=== PATIENT | male | born 1970 | race Caucasian/White ===

== ENCOUNTER 2017-02-13 09:20 | Emergency (ER) | payer SELFPAY ==
[2017-02-13] MEDS ORDERED: ONDANSETRON HCL/PF 4 MG/ 2ML VIAL ONE (09:51)
[2017-02-13] MEDS ORDERED: KETOROLAC TROMETHAMINE 60 MG/2 ML VIAL ONE (09:51)
[2017-02-13] MEDS ORDERED: KETOROLAC TROMETHAMINE 60 MG/2 ML VIAL IM ONE (09:54)
[2017-02-13] MEDS ORDERED: ONDANSETRON HCL/PF 4 MG/ 2ML VIAL IM ONE (09:54)
[2017-02-13 10:11] LABS: APPEARANCE,URINE CLOUDY (CLEAR); COLOR,URINE YELLOW (YELLOW); OCCULT BLOOD,URINE NEGATIVE (NEGATIVE); PH URINE 5.5 (5.0 - 8.0); UROBILINOGEN URINE 0.2 Eu (0.2-1.0)
[2017-02-13 10:15] LABS: BASOPHILS % 0.5 (0.0-1.5); EOSINOPHILS % 0.9 % (0.0-6.8); LYMPHOCYTES # 1.2 # k/uL (0.6-4.0); MEAN CORPUSCULAR HEMOGLOBIN 28.9 pg (28.0-34.0); MONOCYTES # 0.2 # k/uL (0.0-0.9); MONOCYTES % 3.2 % (0.0-11.0)
[2017-02-13 10:37] LABS: eGFR (African) > 60; eGFR (Non-African) > 60
[2017-02-13] MEDS ORDERED: HYOSCYAMINE SULFATE 0.125 MG TAB.SUBL SL ONE (10:58)
--- NOTE | 2017-02-13 11:49 | ED Physician Documentation ---
Flank Pain - HISTORIAN Historian: patient - HPI Stated Complaint: Left Flank Pain Chief Complaint: Flank Pain Additional Information: started suddenly on left side 2 am Onset: hours (6) Duration: constant Timing: still present Context: denies: out of country travel, bad food, recent trauma Severity: moderate Quality: aching Associated Symptoms: none Exacerbated by: nothing Relieved by: nothing Further Comments: no - ROS CONST: no problems GI/: none CVS/RESP: none EYES/ENT: none MS/SKIN/LYMPH: none NEURO/PSYCH: none - SOCIAL HX Smoking History: non-smoker Alcohol Use: none Drug Use: none - FAMILY HX Family History: none - PAST HX Past History: other (kidney stones, ortho issues) Ischemic Bowel Risk Factors: none Other History: none Surgeries/Procedures: none Immunizations: referred to PCP Medications: none Allergies: NKDA - VITAL SIGNS Vital Signs: Vital Signs Temp Pulse Resp BP Pulse Ox 98 F 88 18 155/118 99 02/13/17 09:20 02/13/17 09:20 02/13/17 09:20 02/13/17 09:20 02/13/17 09:20 - REVIEWED ASSESSMENTS Nursing Assessment Reviewed: Yes Vitals Reviewed: Yes Progress - Results/Orders Results/Orders: cbc, cmp, ua, ct abdomen/pelvis ordered - Progress Progress: pt given toradol 60 mg im and hyoscyamine 0.25 mg p.o. with reduction of pain to 2/10 Critical Care Note - Critical Care Note Total Time (mins): 0 ED Results Lab/Radiology - Lab Results Lab Results: Lab Results 02/13/17 02/13/17 02/13/17 10:05 10:05 09:42 WBC 6.50 K/ul K/ul (4.00-12.00) RBC 5.73 M/ul H M/ul (3.90-5.20) Hgb 16.5 g/dL g/dL (12.0-18.0) Hct 49.1 % % (37.0-53.0) MCV 85.7 fl fl (80.0-100.0) MCH 28.9 pg pg (28.0-34.0) MCHC 33.7 g/dL g/dL (30.0-36.0) RDW 13.7 % % (11.3-14.3) Plt Count 203 K/mm3 K/mm3 (130-400) Neut % (Auto) 76.0 % % (39.0-79.0) Lymph % (Auto) 18.6 % % (16.0-50.0) [place] % (Auto) 3.2 % % (0.0-11.0) Eos % (Auto) 0.9 % % (0.0-6.8) Baso % (Auto) 0.5 (0.0-1.5) Neut # 5.0 # k/uL # k/uL (1.4-7.7) Lymph # 1.2 # k/uL # k/uL (0.6-4.0) [place] # 0.2 # k/uL # k/uL (0.0-0.9) Eos # 0.1 # k/uL # k/uL (0.0-0.6) Baso # 0.0 # k/uL # k/uL (0.0-0.5) Reactive Lymphs % 0.9 % % (0.0-5.0) Reactive Lymphs # 0.1 # k/uL # k/uL (0.0-0.8) Sodium 140 mmol/L mmol/L (136-145) Potassium 4.0 mmol/L mmol/L (3.5-5.0) Chloride 109 mmol/L mmol/L (98-110) Carbon Dioxide 31 mmol/L mmol/L (20-32) BUN 11 mg/dL mg/dL (10-26) Creatinine 1.0 mg/dL mg/dL (0.4-1.5) Estimated Creat Clear 143 Est GFR ( Amer) > 60 (60 - ) Est GFR (Non-Af Amer) > 60 (60 - ) Glucose 118 mg/dL H mg/dL (70-99) Calcium 9.7 mg/dL mg/dL (8.5-10.5) Total Bilirubin 0.8 mg/dL mg/dL (0.2-1.2) AST 30 U/L U/L (0-41) ALT 33 U/L U/L (0-45) Alkaline Phosphatase 73 U/L U/L (46-116) Total Protein 7.9 g/dL g/dL (6.0-8.5) Albumin 4.9 g/dL g/dL (3.0-5.5) Urine Color Yellow (YELLOW) Urine Appearance Cloudy (CLEAR) Urine pH 5.5 (5.0 - 8.0) Ur Specific [place] >=1.030 H (1.010-1.030) Urine Protein 1+ mg/dL H mg/dL (NEGATIVE) Urine Ketones Negative mg/dL mg/dL (NEGATIVE) Urine Occult Blood Negative (NEGATIVE) Urine Nitrite Positive H (NEGATIVE) Urine Bilirubin Negative (NEGATIVE) Urine Urobilinogen 0.2 Eu Eu (0.2-1.0) Ur Leukocyte Esterase 1+ H (NEGATIVE) Urine Glucose Negative mg/dL mg/dL (NEGATIVE) - Radiology Radiology Impressions: ct abdomen/pelvis shows 3 mm stone at pelvic brim on left - Orders Orders: ED Orders Category Date Time Status CT ABD & PELVIS W/O CON Stat Exams 02/13/17 Ordered CBC/PLATELET/DIFF Routine Lab 02/13/17 10:05 Completed CMP Routine Lab 02/13/17 10:05 Completed UA MACRO DIP ONLY Routine Lab 02/13/17 09:42 Completed URINE CULTURE Routine Lab 02/13/17 09:42 Received Hyoscyamine Sulfate [[place] Sl] Med 02/13/17 10:58 Once 0.25 mg SL NOW ONE Ketorolac Tromethamine [Toradol] Med 02/13/17 09:51 Discontinued 60 mg .ROUTE .STK-MED ONE Ketorolac Tromethamine [Toradol] Med 02/13/17 09:54 Discontinued 60 mg IM NOW ONE Ondansetron HCl/Pf [Zofran 4 mg/2 ml] Med 02/13/17 09:51 Discontinued 8 mg .ROUTE .STK-MED ONE Ondansetron HCl/Pf [Zofran 4 mg/2 ml] Med 02/13/17 09:54 Discontinued 8 mg IM NOW ONE Abdominal Pain Physical Exam - Physical Exam General Appearance: alert, moderate distress EENT: eye inspection normal, ENT inspection normal, pharynx normal, no signs of dehydration, REX, no nystagmus, TM's nml NECK: normal inspection, thyroid normal, supple RESPIRATORY: no resp distress, chest non-tender, breath sounds normal CVS: reg rate & rhythm, heart sounds normal, equal pulses, no murmur, no gallop , PMI nml, no JVD, no friction rub ABDOMEN: soft, no organomegaly, normal bowel sounds, no abdominal bruit, no distension, tenderness (left lower quadrant) BACK: normal inspection, no CVA tenderness SKIN: warm/dry, normal color EXTREMITIES: non-tender, normal range of motion, no evidence of injury, no edema NEURO: oriented X3, CN's nml as tested, motor nml, sensation nml, mood/affect nml, cognition normal Vital Signs: Vital Signs Temp Pulse Resp BP Pulse Ox 98 F 88 18 155/118 99 02/13/17 09:20 02/13/17 09:20 02/13/17 09:20 02/13/17 09:20 02/13/17 09:20 Discharge Clincal Impression: Kidney stone on left side Prescriptions: Hyoscyamine Sulfate 125 mcg PO QID #20 ml Ketorolac Tromethamine [Toradol] 10 mg PO QID #20 tablet Sulfamethoxazole/Trimethoprim [Bactrim Ds] 1 each PO BID #14 tab Tamsulosin HCl [Flomax] 0.4 mg PO [id number] #5 cap.er.24h Referrals: Primary Doctor,No [Primary Care Provider] - 2 Days Home Medications: Ambulatory Orders Hyoscyamine Sulfate 125 mcg PO QID #20 ml 02/13/17 Ketorolac Tromethamine [Toradol] 10 mg PO QID #20 tablet 02/13/17 Sulfamethoxazole/Trimethoprim [Bactrim Ds] 1 each PO BID #14 tab 02/13/17 Tamsulosin HCl [Flomax] 0.4 mg PO [id number] #5 cap.er.24h 02/13/17 Tramadol HCl [Ultram] 50 mg PO 02/13/17 Comments: discharged in significantly improved condition with above scripts Condition: Stable Disposition: 01 HOME, SELF-CARE Decision to Admit: NO Decision Time: 11:48
[2017-02-13 11:51] VITALS: BP 159/94
--- NOTE | 2017-02-14 01:38 | Diagnostic Imaging Report ---
JURGEN PINO~ [facility] [address] [facility] [address] [place], [place]. [address] ~ ~ ~ ~ Report Submission Date: Feb 13, 2017 11:19:26 AM CDT Patient ~ Study Name: ALEX GARZA ~ Date: Feb 13, 2017 10:09:34 AM CDT ~ Modality Type: CT\SR Gender: M ~ Description: CT ABD & PELVIS W/O CO : 72 ~ Institution: [facility] Physician: JURGEN PINO ~ ~ ~ ~ CT of the abdomen pelvis without contrast CLINICAL HISTORY: ~ Left-sided abdominal pain TECHNIQUE: ~ Helical axial CT of the abdomen pelvis from lung bases to thighs without contrast. ~Sagittal and coronal reconstructions were performed. FINDINGS: ~ Visualized lung bases liver spleen adrenal glands and pancreas are unremarkable. ~The gallbladder is unremarkable. ~There is a left hydronephrosis and left hydroureter with a 3 mm left ureteral calculus at the iliac crest level. ~A normal appendix is present. ~There is no pelvic mass. ~There is calcification of the vas deferens bilaterally suggesting long-standing diabetes. IMPRESSION: ~ Left hydronephrosis and left hydroureter secondary to a mid left ureteral calculus Calcified vas deferens suggest long-standing diabetes ~ Electronically signed on Feb 13, 2017 11:19:26 AM CDT by: Minor CASTREJON
== END 2017-02-13 11:50 | disposition home or self-care (01) ==
LOC: ED 09:20
DX: N20.0 Calculus of kidney (principal)
CPT/HCPCS: 36415; 74176; 80053; 81002; 85025; 87086; A9270; J1885; J2405; 96372; 99283

== ENCOUNTER 2017-05-24 22:45 | Emergency (ER) | payer SELFPAY ==
[2017-05-24] MEDS ORDERED: 0.9 % SODIUM CHLORIDE 1,000 ML IV ONE (23:00)
[2017-05-24] MEDS ORDERED: KETOROLAC TROMETHAMINE 30 MG/1ML VIAL ONE (23:03)
[2017-05-24] MEDS: KETOROLAC TROMETHAMINE 30 MG/1ML VIAL IVP ONE (23:10)
[2017-05-24 23:33] LABS: eGFR (African) > 60; eGFR (Non-African) > 60
[2017-05-24 23:40] LABS: BASOPHILS % 0.7 (0.0-1.5); EOSINOPHILS % 1.9 % (0.0-6.8); MEAN CORPUSCULAR HEMOGLOBIN 28.6 pg (28.0-34.0); MEAN CORPUSCULAR VOLUME 83.8 fl (80.0-100.0); MONOCYTES % 4.4 % (0.0-11.0); NEUTROPHILS # 6.2 # k/uL (1.4-7.7)
[2017-05-24] MEDS ORDERED: TAMSULOSIN HCL 0.4 MG CAP.ER.24H PO ONE (23:56)
[2017-05-25] MEDS: 0.9 % SODIUM CHLORIDE 1,000 ML IV ONE (00:01)
[2017-05-25] MEDS: TAMSULOSIN HCL 0.4 MG CAP.ER.24H PO ONE (00:01)
--- NOTE | 2017-05-25 00:01 | ED Physician Documentation ---
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 Rates pain 9/10) - Associated Symptoms Problems Urinating: discomfort w/ urination, pain w/ urination Penile Pain: No Penile Swelling: No Abdominal Pain: LLQ (groin) - ROS CONST: other (foot surgery) GI/: nausea (related to pain) MS/SKIN/LYMPH: none CVS/RESP: none EYES/ENT: none NEURO/PSYCH: denies: fainting, dizziness, tingling, numbness, anxiety, depression, other - PAST HX Past History: kidney stones Cardiac Disease: none Surgeries/Procedures: other (Root foot - x 7) Allergies/Adverse Reactions: Allergies Allergy/AdvReac Type Severity Reaction Status Date / Time No Known Allergies Allergy Verified 05/24/17 23:11 Home Medications: Ambulatory Orders Medication Instructions Recorded NK [NK] 05/24/17 - SOCIAL HX Smoking History: non-smoker - FAMILY HX Family History: denies: none - VITAL SIGNS Vital Signs: Vital Signs Temp Pulse Resp BP Pulse Ox 98.7 F 99 H 16 162/110 97 05/24/17 22:50 05/24/17 22:50 05/24/17 22:50 05/24/17 22:50 05/24/17 22:50 - REVIEWED ASSESSMENTS Nursing Assessment Reviewed: Yes Vitals Reviewed: Yes Progress - Progress Progress: Patient states pain improved to 5/10 after toradol and IV fluids. [place] and flomax started in ER. Reviewed CT results, questions answered. ED Results Lab/Radiology - Lab Results Lab Results: Lab Results 05/24/17 05/24/17 23:16 23:16 WBC 10.10 K/ul K/ul (4.00-12.00) RBC 5.61 M/ul H M/ul (3.90-5.20) Hgb 16.0 g/dL g/dL (12.0-18.0) Hct 47.0 % % (37.0-53.0) MCV 83.8 fl fl (80.0-100.0) MCH 28.6 pg pg (28.0-34.0) MCHC 34.1 g/dL g/dL (30.0-36.0) RDW 13.6 % % (11.3-14.3) Plt Count 245 K/mm3 K/mm3 (130-400) Neut % (Auto) 61.7 % % (39.0-79.0) Lymph % (Auto) 29.5 % % (16.0-50.0) [place] % (Auto) 4.4 % % (0.0-11.0) Eos % (Auto) 1.9 % % (0.0-6.8) Baso % (Auto) 0.7 (0.0-1.5) Neut # (Auto) 6.2 # k/uL # k/uL (1.4-7.7) Lymph # (Auto) 3.0 # k/uL # k/uL (0.6-4.0) [place] # (Auto) 0.4 # k/uL # k/uL (0.0-0.9) Eos # (Auto) 0.2 # k/uL # k/uL (0.0-0.6) Baso # (Auto) 0.1 # k/uL # k/uL (0.0-0.5) Reactive Lymphs % 1.8 % % (0.0-5.0) Reactive Lymphs # 0.2 # k/uL # k/uL (0.0-0.8) Sodium 144 mmol/L mmol/L (136-145) Potassium 3.8 mmol/L mmol/L (3.5-5.0) Chloride Pending Carbon Dioxide 28 mmol/L mmol/L (20-32) BUN 17 mg/dL mg/dL (10-26) Creatinine 1.2 mg/dL mg/dL (0.4-1.5) Estimated Creat Clear 258 Est GFR ( Amer) > 60 (60 - ) Est GFR (Non-Af Amer) > 60 (60 - ) Glucose 120 mg/dL H mg/dL (70-99) Calcium 10.1 mg/dL mg/dL (8.5-10.5) Total Bilirubin 0.6 mg/dL mg/dL (0.2-1.2) AST 25 U/L U/L (0-41) ALT 36 U/L U/L (0-45) Alkaline Phosphatase 70 U/L U/L (46-116) Total Protein 8.8 g/dL H g/dL (6.0-8.5) Albumin 4.9 g/dL g/dL (3.0-5.5) - Radiology Radiology Impressions: TECHNIQUE: 5 mm contiguous axial images of the abdomen and pelvis non contrast. FINDINGS: The lung bases are clear. The evaluation is limited without IV contrast. There is borderline hepatic steatosis. The noncontrast spleen, adrenal glands gallbladder pancreas and right kidney are unremarkable. There is mild left hydronephrosis and hydroureter secondary to 3 mm distal left ureteral calculus. Urinary bladder is unremarkable and decompressed. The bowel loops are nondistended. No ascites. No pneumoperitoneum. The appendix is normal. No destructive osseous lesions. IMPRESSION: Mild left hydronephrosis and hydroureter secondary to a 3 mm distal left ureteral calculus. - Orders Orders: ED Orders Category Date Time Status Place IV Lock 1T Care 05/24/17 23:[address] ABD & PELVIS W/O CON Stat Exams 05/24/17 Taken CBC/PLATELET/DIFF Routine Lab 05/24/17 23:16 Completed CMP [CMP] Routine Lab 05/24/17 23:16 Results URINALYSIS Routine Lab 05/24/17 Ordered 0.9 % Sodium Chloride [Normal Saline] 1,000 ml Med 05/24/17 23:00 Discontinued IV .STK-MED 0.9 % Sodium Chloride [Normal Saline] 1,000 ml Med 05/24/17 23:10 Ordered IV NOW HYDROcodone /APAP 5/325 [[place] 5/325] Med 05/25/17 00:01 Once 2 each PO NOW ONE Ketorolac Tromethamine [Toradol] Med 05/24/17 23:03 Discontinued 30 mg .ROUTE .STK-MED ONE Ketorolac Tromethamine [Toradol] Med 05/24/17 23:10 Once 30 mg IVP NOW ONE Tamsulosin HCl [Flomax] Med 05/24/17 23:56 Discontinued 0.4 mg PO .STK-MED ONE Tamsulosin HCl [Flomax] Med 05/24/17 23:55 Once 0.4 mg PO NOW ONE Male Genitourinary Problems - EXAM General Appearance: moderate distress Abdomen: non-tender, no organomegaly, other (LLQ) EENT: eye inspection normal, REX Respiratory: no resp distress, chest non-tender, breath sounds normal CVS: reg rate & rhythm, heart sounds normal, equal pulses, no murmur, no gallop , PMI nml, no JVD, no friction rub, 24 Extremities: normal range of motion, non-tender, normal inspection, no pedal edema, no calf tenderness, normal capillary refill, pelvis stable Neuro/Psych: oriented X3, CN's nml as tested, motor nml, sensation nml, mood/ affect nml Skin: normal color, warm/dry, NR, INT, PAL, DR Discharge Clincal Impression: Left ureteral stone Referrals: Primary Doctor,No [Primary Care Provider] - 2 Days Additional Instructions: Rest Increase water intake to at least 64 oz Strain all urine, if you catch the stone take it to your doctor's office. Establish and follow up with primary care if pain does not resolve. Start flomax tomorrow. Limit caffeine Home Medications: Ambulatory Orders NK [NK] 05/24/17 Condition: Stable Disposition: 01 HOME, SELF-CARE Decision to Admit: NO Decision Time: 00:06
[2017-05-25] MEDS: HYDROcodone /APAP 5/325 1 EACH TABLET PO ONE (00:05)
[2017-05-25 00:18] VITALS: BP 141/92
[2017-05-25 05:19] LABS: APPEARANCE,URINE CLEAR (CLEAR); COLOR,URINE YELLOW (YELLOW); OCCULT BLOOD,URINE 2+ (NEGATIVE); PH URINE 5.5 (5.0 - 8.0); UROBILINOGEN URINE 0.2 Eu (0.2-1.0)
--- NOTE | 2017-05-25 06:52 | Diagnostic Imaging Report ---
STEFANO DOWD (SHANNA) - ER~ [facility] [place] [facility] [address] [facility] [address] [place], [place]. [address] ~ ~ ~ ~ Report Submission Date: May 24, 2017 11:51:47 PM CDT Patient ~ Study Name: ALEX GARZA ~ Date: May 24, 2017 11:23:35 PM CDT ~ Modality Type: CT\SR Gender: M ~ Description: CT ABD & PELVIS W/O CO : 72 ~ Institution: [facility] [place] [facility] Physician: STEFANO DOWD (HANDMADE TILE ARTIST) - ER ~ ~ ~ ~ CT abdomen and pelvis without contrast == CLINICAL HISTORY:~ LOWER ABD PAIN, PAIN JUST STARTED THIS EVENING, HX OF KIDNEY STONE (Hx) / ABD PAIN, HX KIDNEY STONE (DICOM Hx) TECHNIQUE: 5 mm contiguous axial images of the abdomen and pelvis non contrast.~ FINDINGS: The lung bases are clear. The evaluation is limited without IV contrast. There is borderline hepatic steatosis. The noncontrast spleen, adrenal glands gallbladder pancreas and right kidney are unremarkable. There is ~mild left hydronephrosis and hydroureter secondary to 3 mm distal left ureteral calculus. Urinary bladder is unremarkable and decompressed. The bowel loops are nondistended. No ascites. No pneumoperitoneum. The appendix is normal. No destructive osseous lesions. IMPRESSION: Mild left hydronephrosis and hydroureter secondary to a 3 mm distal left ureteral calculus. ~ Electronically signed on May 24, 2017 11:51:47 PM CDT by: João CASTREJON
== END 2017-05-25 00:10 | disposition home or self-care (01) ==
LOC: ED 22:45
DX: N20.1 Calculus of ureter (principal)
CPT/HCPCS: 74176; 80053; 81002; 85025; A9270; J1885; J7030; 96361; 96375; 99283; S1016

== ENCOUNTER 2019-01-31 04:36 | Emergency (ER) | payer SELFPAY ==
[2019-01-31] MEDS ORDERED: 0.9 % SODIUM CHLORIDE 1,000 ML IV ONE (04:55)
[2019-01-31] MEDS ORDERED: ONDANSETRON HCL/PF 4 MG/ 2ML VIAL IVP ONE (04:55)
[2019-01-31] MEDS ORDERED: KETOROLAC TROMETHAMINE 30 MG/1ML VIAL IVP ONE (04:55)
--- NOTE | 2019-01-31 05:06 | ED Physician Documentation ---
Flank Pain - HISTORIAN Historian: patient - HPI Stated Complaint: rt flank pain Chief Complaint: Flank Pain Additional Information: Patient presents to ED with right flank pain and RLQ pain which started suddenly at 0230 this morning. Patient states the pain woke him out of sleep, 7/10, sharp stabbing. Now the pain is a dull ache 4/10. He states he has had kidney stones in the past but it has been 4-5 years since his last one. He normally passes them without intervention. He denies fever. Onset: hours (3) Duration: sudden-onset Timing: still present Context: denies: out of country travel Severity: moderate Quality: pain, aching, dull, cramping, sharp, stabbing Associated Symptoms: denies: fever, nausea, vomiting Exacerbated by: nothing Relieved by: nothing - ROS CONST: denies: recent illness GI/: none CVS/RESP: none EYES/ENT: none MS/SKIN/LYMPH: none NEURO/PSYCH: none - SOCIAL HX Smoking History: non-smoker Alcohol Use: none Drug Use: none - FAMILY HX Family History: CAD - PAST HX Past History: none Ischemic Bowel Risk Factors: other (CAD, prior AR) Other History: none Surgeries/Procedures: appendectomy - VITAL SIGNS Vital Signs: Vital Signs Temp Pulse Resp BP Pulse Ox 99.4 F 67 18 168/85 98 01/31/19 04:37 01/31/19 04:37 01/31/19 04:37 01/31/19 04:37 01/31/19 04:37 - REVIEWED ASSESSMENTS Nursing Assessment Reviewed: Yes Vitals Reviewed: Yes Progress - Progress Progress: 0525 Patient rates pain 2/10 after Toradol ED Results Lab/Radiology - Lab Results Lab Results: UA - Blood 3+, Nitrate neg, leukocyte Neg WBC 8.7, Hgb 6.1, Plt 239 Na 142, K 3.5, Cl 103, CO2 26, Glucose 121, bUN15, Cr .87, ALT 38, AST 54, Alkp 56, tbil .5 - Radiology Radiology Impressions: Report Submission Date: Jan 31, 2019 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 The gallbladder is contracted. Calcified splenic granulomas are observed. The liver, spleen, pancreas, adrenals, and left kidney are unremarkable. Mild right hydroureteronephrosis and perinephric stranding are observed. Bowel loops exhibit normal caliber and wall thickness. Minimal lumbar spondylosis is observed. Pelvic sections reveal a 2 mm distal right ureteral stone. The prostate, seminal vesicles, and urinary bladder are unremarkable. Vas deferens calcifications are present. Pelvic bowel loops are normal. The appendix is not identified. Impression: 1. 2 mm distal right ureteral stone with mild obstructive uropathy. 2. Vas deferens calcifications suggest diabetes 3. Nonvisualization of appendix. Electronically signed on Jan 31, 2019 5:42:11 AM HALF BACKER by: Alex Perkins - Orders Orders: ED Orders Category Date Time Status Place IV Lock 1T Care 01/31/19 04:[address] ABD & PELVIS W/O CON Stat Exams 01/31/19 Ordered CBC/PLATELET/DIFF Routine Lab 01/31/19 Ordered CMP Routine Lab 01/31/19 Ordered UA W/MICRO IF INDICATED Routine Lab 01/31/19 04:56 Ordered Ketorolac Tromethamine [Toradol] Med 01/31/19 04:55 Once 30 mg IVP NOW ONE NORMAL SALINE @ 1000 MLS/HR ( 1000ml BOLUS) Med 01/31/19 04:55 Ordered 0.9 % Sodium Chloride [Normal Saline] 1,000 ml IV Q1H Ondansetron HCl/Pf [Zofran] Med 01/31/19 04:55 Once 4 mg IVP NOW ONE Abdominal Pain Physical Exam - Physical Exam General Appearance: no acute distress, alert EENT: REX NECK: normal inspection, supple RESPIRATORY: no resp distress, breath sounds normal CVS: reg rate & rhythm, heart sounds normal ABDOMEN: soft, normal bowel sounds, tenderness (RLQ) BACK: CVA tenderness (R) SKIN: warm/dry, normal color EXTREMITIES: non-tender NEURO: oriented X3, motor nml Vital Signs: Vital Signs Temp Pulse Resp BP Pulse Ox 99.4 F 67 18 168/85 98 01/31/19 04:37 01/31/19 04:37 01/31/19 04:37 01/31/19 04:37 01/31/19 04:37 Discharge Clincal Impression: Right ureteral calculus Prescriptions: Ciprofloxacin HCl [Cipro] 500 mg PO BID #14 tablet Referrals: Primary Doctor,No [Primary Care Provider] - 2 Days Additional Instructions: 1. Drink plenty of fluids. Avoid caffeine and alcohol 2. [place] as needed for pain. You may add Ibuprofen to [place] for better pain control 3. Follow up with PCP within 1 week 4. Return to ER for new or worsening symptoms Condition: Stable Disposition: 01 HOME, SELF-CARE Decision to Admit: NO Date of Decison to Admit: 01/31/19 Decision Time: 05:50
--- NOTE | 2019-01-31 05:44 | Diagnostic Imaging Report ---
VALERIA TRAN [facility] [address] [facility] [address] [place], [place]. [address] Report Submission Date: Jan 31, 2019 5:42:11 AM CONCRETE SMOOTHER Patient Study Name: ALEX GARZA Date: Jan 31, 2019 5:16:51 AM CONCRETE SMOOTHER Modality Type: CT\SR Gender: M Description: CT ABD PELVIS W/O CO : 71 Institution: [facility] Physician: VALERIA TRAN Computed tomography abdomen pelvis without contrast History: Right flank and groin pain Findings: Transverse abdomen and pelvis sections are obtained without contrast. The gallbladder is contracted. Calcified splenic granulomas are observed. The liver, spleen, pancreas, adrenals, and left kidney are unremarkable. Mild right hydroureteronephrosis and perinephric stranding are observed. Bowel loops exhibit normal caliber and wall thickness. Minimal lumbar spondylosis is observed. Pelvic sections reveal a 2 mm distal right ureteral stone. The prostate, seminal vesicles, and urinary bladder are unremarkable. Vas deferens calcifications are present. Pelvic bowel loops are normal. The appendix is not identified. Impression: 1. 2 mm distal right ureteral stone with mild obstructive uropathy. 2. Vas deferens calcifications suggest diabetes 3. Nonvisualization of appendix. Electronically signed on Jan 31, 2019 5:42:11 AM CONCRETE SMOOTHER by: Alex CASTREJON
[2019-01-31] MEDS ORDERED: HYDROcodone /APAP 5/325 1 EACH TABLET PO ONE (06:01)
[2019-01-31 06:50] VITALS: BP 140/85
[2019-01-31 07:12] LABS: EOSINOPHILS % 3.2 % (0.0-6.8); MEAN CORPUSCULAR HEMOGLOBIN 28.5 pg (28.0-34.0); MONOCYTES % 6.8 % (0.0-11.0); NEUTROPHILS # 5.2 # k/uL (1.4-7.7)
[2019-01-31 07:13] LABS: eGFR (Non-African) > 60
[2019-01-31 07:52] LABS: APPEARANCE,URINE CLEAR (CLEAR); COLOR,URINE YELLOW (YELLOW); OCCULT BLOOD,URINE 3+ (NEGATIVE); PH URINE 5.5 (5.0 - 8.0); UROBILINOGEN URINE 0.2 Eu (0.2-1.0)
== END 2019-01-31 06:27 | disposition home or self-care (01) ==
LOC: ED 04:36
DX: N20.1 Calculus of ureter (principal)
CPT/HCPCS: 36415; 74176; 80053; 81002; 85025; 96374; 96375; 99283; 99284; A9270; J1885; J2405; J7030; S1016

== ENCOUNTER 2019-02-08 09:17 | Emergency (ER) | payer SELFPAY ==
[2019-02-08] MEDS ORDERED: ONDANSETRON HCL/PF 4 MG/ 2ML VIAL IVP ONE (09:36)
[2019-02-08] MEDS ORDERED: 0.9 % SODIUM CHLORIDE 1,000 ML IV ONE (09:36)
[2019-02-08] MEDS ORDERED: KETOROLAC TROMETHAMINE 30 MG/1ML VIAL IV ONE (09:36)
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
--- NOTE | 2019-02-08 10:49 | Diagnostic Imaging Report ---
JEAN BUSH [facility] [address] [facility].[address] [id number] Report Submission Date: Feb 08, 2019 10:43:57 AM CDT Patient Study Name: ALEX GARZA Date: Feb 08, 2019 9:53:10 AM CDT Modality Type: US Gender: M Description: US RETROPERITONEAL LIMIT : 72 Institution: [facility] Physician: JEAN BUSH Examination: Ultrasound kidneys History: Rt flank pain was told had kidney stone on 01/31/19 here at this location by way of ct Comparison exams: CT dated 31 January 2019 Findings: Right kidney measures 13.0 cm in length. Left kidney measures 12.2 cm in length. No evidence for cortical mass bilaterally. No hydronephrosis. No suspicious echogenic structure. Impression: No renal mass or obstruction. No ultrasound evidence for nephrolithiasis. Electronically signed on Feb 08, 2019 10:43:57 AM CDT by: Shubham CASTREJON
[2019-02-08 11:10] VITALS: BP 147/91
== END 2019-02-08 11:05 | disposition home or self-care (01) ==
LOC: ED 09:17
DX: R10.31 Right lower quadrant pain (principal)
CPT/HCPCS: 76775; 96374; 96375; 99283; 99284; J1885; J2405; J7030; S1016